=== PATIENT | female | born 2000 | race Caucasian/White ===

== ENCOUNTER 2022-01-26 11:49 | Emergency (ER) | payer MEDICAID, SELFPAY ==
[2022-01-26 12:09] VITALS: BP 126/90; PULSE 80; RESP 16; TEMP 36.2; O2SAT 98; BMI 21.4
[2022-01-26 13:47] LABS: Appearance Urine CLEAR; Color Urine YELLOW; Glucose Urine UA NEG (NEG); Leukocyte Esterase Urine 1+ (NEG); Nitrite Urine NEG (NEG); PH 6.5 (5.0-8.0); Specific Gravity - Urine <= 1.005 (1.005-1.025); UACC Culture Trigger YES; Urine Blood NEG (NEG); Urine Ketones NEG (NEG); Urine Protein NEG (NEG-TRACE)
[2022-01-26 13:50] LABS: UPreg QC Valid YES; Urine Pregnancy NEGATIVE (NEGATIVE)
[2022-01-26 14:06] LABS: Bacteria Urine TRACE /LPF; RBC Urine 0-2 /HPF (0); Squamous Epithelial Cell Urine 3+ /LPF
--- NOTE | 2022-01-26 15:22 | ED.GENADULT ---
HPI - General Adult General Chief complaint: General Medical Stated complaint: possible /cramping Time Seen by Provider: 01/26/22 14:59 Source: patient Mode of arrival: ambulatory Limitations: no limitations History of Present Illness HPI narrative: 21 yo female here with complaints of breast tenderness, increased appetite with concern for . Patient normally has a menses monthly. 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 She is sexually active with 1 male partner. She does not use any contraception. She tells me she is not trying to get but is not using any measures to prevent . She is here for test she tells me she did not have money to buy one. Related Data Allergies Allergy/AdvReac Type Severity Reaction Status Date / Time No Known Allergies Allergy Verified 01/26/22 12:14 [No Known Allergies*] Review of Systems Review of Systems: Yes all other systems are reviewed and are negative Constitutional: Constitutional: Reports no additional constitutional complaints, Denies body ache(s), Denies chills, Denies fever(s), Denies headache(s) and Denies weakness Eyes: Eyes: Reports no additional eye complaints and Denies change in vision ENT: Reports system reviewed and no additional complaints, except as documented, Denies dizziness, Denies headache(s), Denies nasal congestion, Denies nasal discharge and Denies neck pain Cardiovascular: Cardiovascular: Reports no additional cardiovascular complaints, Denies chest pain, Denies leg edema and Denies dyspnea Respiratory: Respiratory: Reports no additional respiratory complaints, Denies cough and Denies dyspnea Gastrointestinal: Gastrointestinal: Reports no additional gastrointestinal complaints, Denies abdominal pain, Denies diarrhea, Denies nausea and Denies vomiting Genitourinary: Genitourinary: Reports no additional female genitourinary complaints and Denies urinary incontinence Musculoskeletal: Musculoskeletal: Reports no additional musculoskeletal complaints, Denies back pain, Denies arthralgias, Denies joint swelling, Denies neck pain, Denies numbness and Denies tingling Integumentary/Breasts: Skin/Breast: Reports system reviewed and no additional complaints, except as docu and Denies rash Neurologic: Reports system reviewed and no additional complaints, except as documented, Denies dizziness, Denies headache(s), Denies numbness, Denies tingling and Denies weakness PMF Past Medical History Attestation statement: The following information was validated with the patient. Source: old records reviewed and nursing notes reviewed Medical History Cognitive disorder Social History Social History Advance Directives: No Advance Directives Information Provided: No Physical Exam ED Vital Signs: Vital Signs - 24 hr 01/26/22 12:09 Temperature 97.2 F Pulse Rate 80 Respiratory Rate 16 Blood Pressure 126/90 H Pulse Oximetry 98 BMI result Body Mass Index 21.4 Const General: cooperative and alert Orientation/consciousness: patient oriented x3 Limitations: no limitations HENMT Head: Yes normal to inspection Eyes General: appearance normal, both eyes and all related structures Neck Neck: Yes normal visual inspection Chest Chest palpation & inspection: normal inspection of the chest Resp Effort & Inspection: normal respiratory effort Skin General skin exam: no rashes or lesions noted Neuro General: patient oriented x3 and moves all extremities Cognition (Neuro): normal cognition Gait exam (Neuro): Normal gait present Course Course Course Narrative: 21-year-old female here with concern for as she recently had a menses that was delayed and 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 Her test here is negative. We did discuss that her last menstrual cycle may have been implantation bleeding. However I would expect that her test today would be positive. She should retest her urine several weeks with a 1st morning specimen. She has no abdominal pain or vaginal bleeding and appears well. I did recommend she follow up outpatient with her own OBGYN as needed. Reviewed worrisome signs and symptoms of when to return to the emergency department. Comfortable discharge home. Medical Decision Making Medical Records Medical records reviewed: Yes I reviewed the patient's medical records. Lab Data Lab results reviewed: Yes I reviewed the patient's lab results. Labs: Lab Results 01/26/22 01/26/22 Range/Units 13:39 13:39 Urine Color YELLOW Urine Appearance CLEAR Urine pH 6.5 (5.0-8.0) Ur Specific [place] <= 1.005 (1.005-1.025) Urine Protein NEG (NEG-TRACE) MG/DL Urine Glucose (UA) NEG (NEG) MG/DL Urine Ketones NEG (NEG) MG/DL Urine Blood NEG (NEG) Urine Nitrite NEG (NEG) Ur Leukocyte Esterase 1+ H (NEG) Urine RBC 0-2 (0) /HPF Urine WBC 1-4 (0-4) /HPF Ur Squamous Epith Cells 3+ /LPF Urine Bacteria TRACE /LPF Urine Test NEGATIVE (NEGATIVE) Discharge Plan Discharge Clinical Impression: Breast tenderness Patient Disposition: Home, Self-Care Instructions: Normal Exam (ED) Additional Instructions: Your test is negative. You just had your menses so it is likely too soon to tell if your . You should retest herself in a few weeks with your 1st morning specimen at home Referrals: Physician,None [Primary Care Provider] - Interventions: ED Discharge Assessment Last Done: 01/26/22 15:16 Discharge Date/Time: 01/26/22 15:20
== END 2022-01-26 15:20 | disposition home or self-care (01) ==
PROVIDERS: Emergency Provider Emergency Medicine Emergency Medical Services
DX: N64.4 Mastodynia (principal); Z32.02 Encounter for pregnancy test, result negative
CPT/HCPCS: 81001; 81025; 87086; 99283

== ENCOUNTER 2022-02-24 12:58 | Emergency (ER) | payer MEDICAID, SELFPAY ==
--- NOTE | ~2022-02-24 | XR_ITS ---
EXAMINATION: XR foot LT 2V, XR ankle LT 2V CLINICAL INFORMATION: Foot and ankle pain COMPARISON: None. TECHNIQUE: AP and lateral views left ankle; 3 views left foot FINDINGS: Left ankle: No acute fracture or dislocation. Ankle mortise is congruent and intact. Ankle joint space is maintained. Left foot: No acute fracture or dislocation. Joint spaces are maintained. Lisfranc alignment is intact in this nonweightbearing exam. No evidence of ankle joint effusion. XR/XR ankle LT 2V IMPRESSION: No acute fracture or dislocation identified at the foot or ankle.
--- NOTE | ~2022-02-24 | XR_ITS ---
EXAMINATION: XR foot LT 2V, XR ankle LT 2V CLINICAL INFORMATION: Foot and ankle pain COMPARISON: None. TECHNIQUE: AP and lateral views left ankle; 3 views left foot FINDINGS: Left ankle: No acute fracture or dislocation. Ankle mortise is congruent and intact. Ankle joint space is maintained. Left foot: No acute fracture or dislocation. Joint spaces are maintained. Lisfranc alignment is intact in this nonweightbearing exam. No evidence of ankle joint effusion. XR/XR foot LT 2V IMPRESSION: No acute fracture or dislocation identified at the foot or ankle.
[2022-02-24 13:04] VITALS: BP 124/81; PULSE 68; RESP 16; TEMP 36.6; O2SAT 98; BMI 20.7
[2022-02-24] MEDS: Acetaminophen 325 MG TABLET 650 MG PO (13:11)
--- NOTE | 2022-02-24 13:43 | ED_ITS ---
HPI - Extremity Problem General Chief complaint: Extremity Injury, Lower Stated complaint: foot pain for 1 week Time Seen by Provider: 02/24/22 13:24 Source: patient Mode of arrival: ambulatory Limitations: no limitations History of Present Illness HPI Narrative: Patient presents emergency department for evaluation of foot pain. She reports 2 weeks ago when she was walking to the store in her foot flat sandals she developed diffuse left foot pain that lasted about 5-10 minutes. In the pain went away. Over the past 3 days she again developed a similar pain. But the pain is more constant now. Is made worse when she is ambulating with weight- bearing. Reports that the entire foot is painful and intermittently numb. She is unable to identify any specific exacerbating factors. She has not taken any Tylenol or ibuprofen as she does not have medications at home. Denies any known precipitating injury. Related Data Previous Rx's Medication Instructions Recorded acetaminophen 325 mg tablet 650 mg PO Q6H PRN #30 tab 02/24/22 (Tylenol) ibuprofen 600 mg tablet 600 mg PO Q8H PRN #30 tab 02/24/22 Allergies Allergy/AdvReac Type Severity Reaction Status Date / Time No Known Allergies Allergy Verified 02/24/22 13:04 [No Known Allergies*] Review of Systems Review of Systems: Constitutional: No fever, chills, weakness or fatigue. Skin: No rash or itching. Musculoskeletal: Positive foot pain neurologic: Positive numbness Yes all other systems are reviewed and are negative [facility] Past Medical History Attestation statement: The following information was validated with the patient. Source: old records reviewed Medical History Cognitive disorder Social History Social History Advance Directives: No Advance Directives Information Provided: No Physical Exam Vital Signs: Vital Signs: Last Vital Signs Temp 97.9 F 02/24/22 13:04 Pulse 68 02/24/22 13:04 Resp 16 02/24/22 13:04 BP 124/81 02/24/22 13:04 Pulse Ox 98 02/24/22 13:04 BMI result Body Mass Index 20.7 Vital signs have been reviewed as normal and appeared to be correct. Blood pressure normal.? Heart rate normal.? Respiration rate normal. Temperature normal.? Oxygen saturation normal. Appearance: Alert.?Oriented to person, place and time. No acute distress.?Normal affect. Eyes: Pupils equal, round and reactive to light.? ENT: Pharynx normal.?? Neck: Normal inspection.? Neck supple.?? CVS: Heart sounds normal. Normal heart rate and rhythm.? Pulses normal.?? Respiratory: No respiratory distress.? Lung sounds clear to auscultation bilaterally?? Abdomen: Soft and non-tender. ?? Skin: Skin warm and dry.? Normal skin color.? Extremities: No lower extremity edema.? No calf ttp. No point tenderness of the left foot on exam, no erythema, swelling, or obvious deformity. Palpable DP/PT pulse 2+ bilaterally. Neuro: Moves all extremities spontaneously. Sensation intact bilaterally. No motor deficits. Ambulates with normal steady gait. Course Course Course Narrative: Patient is a 21-year-old female presenting to the emergency department for evaluation of left foot pain. No acute precipitating injury to suggest fracture dislocation, protocol X-ray obtained from triage reveals no acute fracture dislocation. She is neurovascularly intact distally. Suspect that her pain may be related to a minor sprain of the foot, or possible plantar fasciitis due to constant non supportive footwear, or barefoot ambulation. At this time unfortunately, she is unable to purchase new footwear. Advised pain management with Tylenol and ibuprofen. Provided with a postop shoe to facilitate pain management and offloading pressure from foot. Discussed reasons to return back to the emergency department. All questions were answered, and patient was discharged home stable condition advised to follow-up with her primary care provider as needed if her symptoms do not improve. MDM - Extremity (Nontraumatic) Imaging Data XR foot: Radiologist's impression: Impressiion LT foot: No acute fracture or dislocation identified at the foot or ankle Discharge Plan Discharge Clinical Impression: Foot sprain Patient Disposition: Home, Self-Care Instructions: How to Use an Elastic Bandage (ED), Foot Sprain (ED), R.I.C.E. Treatment (ED) Additional Instructions: Rest, Ice, elevate the foot when possible. As we discussed it is important to buy new supportive footwear. You may use the walking shoe when walking extended distances, to help with your pain. You can take ibuprofen 200 mg, 3 tablets (600mg) every 6-8 hours as needed for pain, in addition to Tylenol 500 mg, 2 tablets (1,000mg) every 4-6 hours as needed for pain, but not to exceed 3 doses daily (3,000mg). Please follow up with your PCP in 1 week.? Prescriptions: New ibuprofen 600 mg tablet 600 mg PO Q8H PRN (Reason: fever or pain) Qty: 30 0RF acetaminophen [Tylenol] 325 mg tablet 650 mg PO Q6H PRN (Reason: fever or pain) Qty: 30 0RF Interventions: ED Discharge Assessment Last Done: 02/24/22 16:16 Discharge Date/Time: 02/24/22 16:18
== END 2022-02-24 16:18 | disposition home or self-care (01) ==
LOC: HO.ED 13:59
PROVIDERS: Emergency Provider Student in an Organized Health Care Education/Training Program
DX: S93.602A Unspecified sprain of left foot, initial encounter (principal); X50.1XXA Overexertion from prolonged static or awkward postures, initial encounter; Y93.01 Activity, walking, marching and hiking; Y92.414 Local residential or business street as the place of occurrence of the external cause; Y99.9 Unspecified external cause status
CPT/HCPCS: 73600; 73620; 99283

== ENCOUNTER 2022-04-23 17:29 | Emergency (ER) | payer MEDICAID, SELFPAY ==
--- NOTE | ~2022-04-23 | US_ITS ---
EXAMINATION: US OBSTETRICAL ULTRASOUND CLINICAL INFORMATION: Abdominal cramping. Rule out ectopic . COMPARISON: None. LMP: 03/09/2022. Gestational age by maternal dates is 6 weeks 3 days. Estimated date of delivery by maternal dates is 12/14/2021. TECHNIQUE: Transabdominal and transvaginal first trimester OB ultrasound. Transvaginal exam was performed for better visualization of the uterus and ovaries. FINDINGS: The uterus measures 7 x 3.5 x 4.5 cm in dimension. There is an intrauterine gestational sac. [place]-rump length measures 0.39 cm suggesting gestational age of 6 weeks 1 day with estimated date of delivery of 12/16/2021. heart rate is 124 bpm. There is a yolk sac. There is a irregularly-shaped fluid collection adjacent to the gestational sac questionable for a subchorionic hemorrhage. This measures 1.5 x 1.1 x 1.9 cm. The right ovary is slightly enlarged and measures 4.6 x 3.8 x 4.3 cm. There is a 3.8 x 3.2 x 3.5 cm right ovarian simple cyst. Arterial and venous flow is documented to the right ovary. The left ovary is normal appearing and measures 2.4 x 1.4 x 1.5 cm. There is no fluid in the pelvis. US/US OB pelvic and transvaginal IMPRESSION: 1. Single intrauterine gestation with ultrasound gestational age of 6 weeks 1 day +/- 4 days. 2. Estimated date of delivery is 12/16/2021 +/- 4 days. 3. 3.8 x 3.2 x 3.5 cm right ovarian cyst.
[2022-04-23 19:09] VITALS: BP 136/78; PULSE 79; RESP 18; TEMP 36.5; O2SAT 99; BMI 25.7
[2022-04-23 19:24] LABS: MANUAL DIFF FLAG NO
[2022-04-23 19:25] LABS: Basophils Absolute Auto 0.1 X10*3/uL (0.0-0.2); Basophils Percent Auto 0.3 % (0-2); Eosinophils Absolute Auto 0.3 X10*3/uL (0.0-0.4); Eosinophils Percent Auto 1.3 % (0-4); Hematocrit 36.3 % (37.0-47.0); Hemoglobin 12.8 g/dl (12.0-16.0); Imm Gran Abs Auto 0.26 X10*3/uL (0.00-0.03); Imm Gran Pct Auto 1.3 % (0.0-0.4); Lymphocytes Absolute Auto 3.8 X10*3/uL (1.2-4.9); Lymphocytes Percent Auto 18.8 % (20-40); Mean Corpuscular HGB Conc 35.3 g/dl (31.0-35.0); Mean Corpuscular Hemoglobin 32.5 pg (27.0-33.0); Mean Corpuscular Volume 92.1 fL (80.0-98.0); Mean Platelet Volume 10.2 fL (9.4-12.3); Monocytes Absolute Auto 1.2 X10*3/uL (0.1-1.2); Neutrophils Absolute Auto 14.5 x10*3/uL (2.0-8.3); Neutrophils Percent Auto 72.3 % (45-73); Platelet Count 284 X10*3/uL (160-400); Red Blood Count 3.94 X10*6/uL (4.20-5.50); White Blood Count 20.1 X10*3/uL (4.8-10.8)
[2022-04-23 19:40] LABS: Alanine Aminotransferase 18 U/L (0-31); Albumin Level 4.6 g/dL (3.5-5.0); Alkaline Phosphatase 79 U/L (39-117); Anion Gap 15 (12-20); Aspartate Amino Transferase 19 U/L (5-31); Bilirubin Total 0.4 mg/dL (0.0-1.0); Blood Urea Nitrogen 11 mg/dL (9-16); Calcium 9.5 mg/dL (8.4-10.2); Carbon Dioxide 24 mmol/L (22-29); Chloride 104 mmol/L (96-108); Creatinine Clr Calc Pharmacy 105.1; Estimated Glomerular Filt Rate > 60; Glucose Random 78 mg/dL (60-115); Potassium 3.8 mmol/L (3.3-5.1); Sodium 139 mmol/L (135-145); Total Protein 7.5 g/dL (6.5-8.0)
[2022-04-23 21:07] VITALS: BP 132/71; PULSE 76; RESP 16; TEMP 36.8; O2SAT 98
[2022-04-23 21:25] LABS: Appearance Urine CLEAR; Color Urine YELLOW; Glucose Urine UA NEG (NEG); Leukocyte Esterase Urine NEG (NEG); Nitrite Urine NEG (NEG); Specific Gravity - Urine 1.025 (1.005-1.025); Urine Blood NEG (NEG); Urine Ketones 5 MG/DL (NEG); Urine Protein NEG (NEG-TRACE)
[2022-04-23 21:29] LABS: UPreg QC Valid YES; Urine Pregnancy POSITIVE (NEGATIVE)
--- NOTE | 2022-04-23 21:38 | ED.GENADULT ---
HPI - General Adult General Chief complaint: OB Stated complaint: ? how far along cramping Time Seen by Provider: 04/23/22 20:49 Source: patient Mode of arrival: ambulatory Limitations: no limitations History of Present Illness HPI narrative: 21-year-old female came in for evaluation of abdominal cramps. This is a about 6 weeks by date no ultrasound yet, had a history of spontaneous with her 1st came in concerned about lower abdominal cramps that is intermittent it started today, patient declined any abdominal trauma, no vaginal bleeding, no history of STDs, no history of ectopic . Patient also declined dysuria, urinary frequency. Related Data Previous Rx's Medication Instructions Recorded acetaminophen 325 mg tablet 650 mg PO Q6H PRN fever or pain 02/24/22 (Tylenol) #30 tabs ibuprofen 600 mg tablet 600 mg PO Q8H PRN fever or pain 02/24/22 #30 tabs Allergies Allergy/AdvReac Type Severity Reaction Status Date / Time No Known Allergies Allergy Verified 04/23/22 19:09 [No Known Allergies*] Review of Systems Review of Systems: All other systems are reviewed and are negative Constitutional: Reports as per HPI and Reports no additional constitutional complaints Eyes: Reports as per HPI and Reports no additional eye complaints Reports system reviewed and no additional complaints, except as documented Cardiovascular: Reports as per HPI and Reports no additional cardiovascular complaints Respiratory: Reports as per HPI and Reports no additional respiratory complaints Gastrointestinal: Reports as per HPI and Reports no additional gastrointestinal complaints Genitourinary: Reports no additional female genitourinary complaints Musculoskeletal: Reports no additional musculoskeletal complaints Skin/Breast: Reports system reviewed and no additional complaints, except as docu Psychiatric: Reports no additional psychiatric complaints Endocrine: Reports no additional endocrine complaints Hematologic/Lymphatic: Reports no additional hematologic/lymphatic complaints Allergic/Immunologic: Reports no additional allergic/immunologic complaints Reports system reviewed and no additional complaints, except as documented and Reports Abnormal speech present [facility] Past Medical History Medical History Cognitive disorder Social History Social History Advance Directives: No Advance Directives Information Provided: No Physical Exam ED Vital Signs: Vital Signs - 24 hr 04/23/22 19:09 04/23/22 21:07 04/23/22 22:00 Temperature 97.7 F 98.2 F 98.4 F Pulse Rate 79 76 71 Respiratory Rate 18 16 16 Blood Pressure 136/78 132/71 123/76 Pulse Oximetry 99 98 98 Oxygen Delivery Method Room Air Room Air Room Air BMI result Body Mass Index 25.7 Vital signs have been reviewed as appeared to be correct. Blood pressure normal. Heart rate normal. Respiration rate normal. Temperature normal. Oxygen saturation normal. Appearance: Alert. Oriented X3. No acute distress. Head: Normal external exam. Normocephalic. Atraumatic. No [place] signs noted. No raccoon eyes noted Eyes: PERRLA. EOMI. Conjunctiva and sclera normal. Eyelids normal. ENT: TM's Normal. Pharynx normal. Uvula midline. Moist mucous membranes. No trismus noted. No drooling noted. No muffled voice noted. Neck: Normal inspection. Neck supple. FROM. No adenopathy. Thyroid Normal. No meningeal signs. No neck mass noted. CVS: Normal heart rate and rhythm. Heart sound normal. No murmurs noted. Pulses normal throughout. Respiratory: No respiratory distress. Painless inspiration. Breath sounds normal. No wheezes/rales/rhonchi noted. Chest nontender. No accessory muscle usage noted or decreased air movement noted. Abdomen: Soft and nontender. Bowel sounds normal in all 4 quadrants. No distention noted. No organomegaly noted. No visible injury noted. Pelvic exam: Deferred for ultrasound. Back: No CVA tenderness. Full range of motion noted. Skin: Skin warm and dry. Normal skin color. Normal skin turgor. No rashes/lesions/lacerations noted. Extremities: No lower extremity edema. Extremities exhibit normal range of motion. Extremities nontender. Neuro: Oriented X 3. Cranial nerve exam: II-XII are grossly intact No motor deficit. No sensory deficit. Reflexes normal. Course Course Course Narrative: 21-year-old female with history of spontaneous in the past came in for concern of pelvic contractions, ultrasound showed 1 IUP with no concern, patient with leukocytosis and left shift of the immature granulocyte, by history and exam there is no source to explain this lab abnormalities except normal reaction from . Patient was instructed to follow up with her OB for the care. Medical Decision Making Lab Data Lab results reviewed: Yes I reviewed the patient's lab results. Result diagrams: 04/23/22 19:19 04/23/22 19:19 Labs: Lab Results 04/23/22 04/23/22 04/23/22 Range/Units 19:19 19:19 19:19 WBC 20.1 H (4.8-10.8) X10*3/uL RBC 3.94 L (4.20-5.50) X10*6/uL Hgb 12.8 (12.0-16.0) g/dl Hct 36.3 L (37.0-47.0) % MCV 92.1 (80.0-98.0) fL MCH 32.5 (27.0-33.0) pg MCHC 35.3 H (31.0-35.0) g/dl RDW 12.0 (11.0-16.0) % Plt Count 284 (160-400) X10*3/uL MPV 10.2 (9.4-12.3) fL Immature Gran % (Auto) 1.3 H (0.0-0.4) % Neut % (Auto) 72.3 (45-73) % Lymph % (Auto) 18.8 L (20-40) % [place] % (Auto) 6.0 (2-11) % Eos % (Auto) 1.3 (0-4) % Baso % (Auto) 0.3 (0-2) % Lymph # (Auto) 3.8 (1.2-4.9) X10*3/uL [place] # (Auto) 1.2 (0.1-1.2) X10*3/uL Eos # (Auto) 0.3 (0.0-0.4) X10*3/uL Baso # (Auto) 0.1 (0.0-0.2) X10*3/uL Abs Immat Gran (auto) 0.26 H (0.00-0.03) X10*3/uL Absolute Neuts (auto) 14.5 H (2.0-8.3) x10*3/uL Absolute Nucleated RBC 0.000 (0.0-0.012) X10*3/uL Nucleated RBC % (auto) 0.0 (0.0-0.2) /100WBC Sodium 139 (135-145) mmol/L Potassium 3.8 (3.3-5.1) mmol/L Chloride 104 (96-108) mmol/L Carbon Dioxide 24 (22-29) mmol/L Anion Gap 15 (12-20) BUN 11 (9-16) mg/dL Creatinine 0.73 (0.5-1.4) mg/dL Estim Creat Clear Calc 105.1 Estimated GFR > 60 Random Glucose 78 (60-115) mg/dL Calcium 9.5 (8.4-10.2) mg/dL Total Bilirubin 0.4 (0.0-1.0) mg/dL AST 19 (5-31) U/L ALT 18 (0-31) U/L Alkaline Phosphatase 79 (39-117) U/L Total Protein 7.5 (6.5-8.0) g/dL Albumin 4.6 (3.5-5.0) g/dL Beta HCG, Quant 11223 mIU/mL Urine Color Urine Appearance Urine pH (5.0-8.0) Ur Specific [place] (1.005-1.025) Urine Protein (NEG-TRACE) MG/DL Urine Glucose (UA) (NEG) MG/DL Urine Ketones (NEG) MG/DL Urine Blood (NEG) Urine Nitrite (NEG) Ur Leukocyte Esterase (NEG) Urine Test (NEGATIVE) Blood Type O Positive 04/23/22 04/23/22 Range/Units 21:18 21:18 WBC (4.8-10.8) X10*3/uL RBC (4.20-5.50) X10*6/uL Hgb (12.0-16.0) g/dl Hct (37.0-47.0) % MCV (80.0-98.0) fL MCH (27.0-33.0) pg MCHC (31.0-35.0) g/dl RDW (11.0-16.0) % Plt Count (160-400) X10*3/uL MPV (9.4-12.3) fL Immature Gran % (Auto) (0.0-0.4) % Neut % (Auto) (45-73) % Lymph % (Auto) (20-40) % [place] % (Auto) (2-11) % Eos % (Auto) (0-4) % Baso % (Auto) (0-2) % Lymph # (Auto) (1.2-4.9) X10*3/uL [place] # (Auto) (0.1-1.2) X10*3/uL Eos # (Auto) (0.0-0.4) X10*3/uL Baso # (Auto) (0.0-0.2) X10*3/uL Abs Immat Gran (auto) (0.00-0.03) X10*3/uL Absolute Neuts (auto) (2.0-8.3) x10*3/uL Absolute Nucleated RBC (0.0-0.012) X10*3/uL Nucleated RBC % (auto) (0.0-0.2) /100WBC Sodium (135-145) mmol/L Potassium (3.3-5.1) mmol/L Chloride (96-108) mmol/L Carbon Dioxide (22-29) mmol/L Anion Gap (12-20) BUN (9-16) mg/dL Creatinine (0.5-1.4) mg/dL Estim Creat Clear Calc Estimated GFR Random Glucose (60-115) mg/dL Calcium (8.4-10.2) mg/dL Total Bilirubin (0.0-1.0) mg/dL AST (5-31) U/L ALT (0-31) U/L Alkaline Phosphatase (39-117) U/L Total Protein (6.5-8.0) g/dL Albumin (3.5-5.0) g/dL Beta HCG, Quant mIU/mL Urine Color YELLOW Urine Appearance CLEAR Urine pH 6.0 (5.0-8.0) Ur Specific [place] 1.025 (1.005-1.025) Urine Protein NEG (NEG-TRACE) MG/DL Urine Glucose (UA) NEG (NEG) MG/DL Urine Ketones 5 (NEG) MG/DL Urine Blood NEG (NEG) Urine Nitrite NEG (NEG) Ur Leukocyte Esterase NEG (NEG) Urine Test POSITIVE H (NEGATIVE) Blood Type Imaging Data Pelvic ultrasound: Attestation: I personally reviewed and interpreted this imaging study as follows: Radiologist's impression: 1. Single intrauterine gestation with ultrasound gestational age of? 6 weeks 1 day +/- 4 days. 2. Estimated date of delivery is 12/16/2021 +/- 4 days. 3. 3.8 x 3.2 x 3.5 cm right ovarian cyst. Discharge Plan Discharge Clinical Impression: , threatened Patient Disposition: Home, Self-Care Instructions: Threatened Miscarriage (ED) Additional Instructions: no heavy lifting, no straining or bearing down, no strenuous activity, no bending, no sexual intercourse, bed rest and follow-up with your OB for your normal pre care. Prescriptions: No Action ibuprofen 600 mg tablet 600 mg PO Q8H PRN (Reason: fever or pain) Qty: 30 0RF acetaminophen [Tylenol] 325 mg tablet 650 mg PO Q6H PRN (Reason: fever or pain) Qty: 30 0RF
[2022-04-23 22:00] VITALS: BP 123/76; PULSE 71; RESP 16; TEMP 36.9; O2SAT 98
--- NOTE | 2022-04-23 23:36 | PC.NURSE ---
initial contact done at point of discharge, pt is well appearing, has male plumber pipe fitting at bedside. Pt reports mild abd cramping, denies any vag bleeding, denies rupture of membranes. D/C education provided, no iv access present, last set of VS stable, pt questions addressed, no further concerns at this time. pt ambulatory steady gait no difficulty. pt having a lyff pick them up
== END 2022-04-23 23:37 | disposition home or self-care (01) ==
PROVIDERS: Emergency Medicine; Emergency Provider Emergency Medicine
DX: O20.0 Threatened abortion (principal); Z3A.01 Less than 8 weeks gestation of pregnancy; R10.30 Lower abdominal pain, unspecified
CPT/HCPCS: 36415; 76801; 76817; 80053; 81003; 81025; 84702; 85025; 86900; 86901; 99284